=== PATIENT | female | born 1990 | race American Indian/Alaskan Native ===

== ENCOUNTER 2017-12-29 06:57 | Emergency (ER) | payer SELFPAY ==
[2017-12-29] MEDS ORDERED: TYLENOL ONE (07:34)
[2017-12-29] MEDS ORDERED: TYLENOL PO ONE (07:35)
[2017-12-29 09:31] VITALS: BP 116/70
--- NOTE | 2017-12-29 09:40 | Emergency Department Report ---
HPI - General Chief Complaint: Fever Time Seen by Provider: 12/29/17 09:21 - HPI HPI: 27-year-old female presents to the emergency department with complaint of a three-day history of a fever, sore throat and some right ear pain. She also has some body aches. She tried some Tylenol for her symptoms without much relief. She denies any other past medical history other than some asthma. No recent travel or sick contacts at home. She denies any rash, chest pain, shortness of breath, abdominal pain, vaginal bleeding or discharge, dysuria. She does not have a primary care physician as she recently moved to the area. ED Past Medical Hx - Past Medical History Previous Medical History?: Yes Hx Asthma: Yes - Surgical History Past Surgical History?: Yes Additional Surgical History: x 1 - Social History Smoking Status: Never Smoker Substance Use Type: Alcohol - Medications Home Medications: Home Medications Medication Instructions Recorded Confirmed Last Taken Type Amoxicillin 500 mg PO TID #30 capsule 12/29/17 Unknown Rx ED Review of Systems ROS: Stated complaint: FEVER,SORETHROAT,RIGHT EAR PAIN Other details as noted in HPI Constitutional: chills, fever Eyes: denies: eye pain, eye discharge, vision change ENT: ear pain, throat pain Respiratory: denies: cough, shortness of breath, wheezing Cardiovascular: denies: chest pain, palpitations Gastrointestinal: denies: abdominal pain, nausea, diarrhea Genitourinary: denies: urgency, dysuria, discharge Musculoskeletal: denies: back pain, joint swelling, arthralgia Skin: denies: rash, lesions Neurological: denies: headache, weakness, paresthesias Physical Exam - Physical Exam Vital Signs: Vital Signs 12/29/17 12/29/17 07:31 09:30 Temperature 101.3 F H 99.6 F Pulse Rate 103 H 96 H Respiratory 20 18 Rate Blood Pressure 128/86 Blood Pressure 116/70 [Left] O2 Sat by Pulse 99 100 Oximetry Physical Exam: GENERAL: The patient is well-developed well-nourished. HENT: Normocephalic. Atraumatic. Patient has moist mucous membranes. The patient has bilateral tonsillar hypertrophy, erythema and bilateral tonsillar exudates. No drooling or trismus. Normal-appearing external ear canals and tympanic membranes bilaterally. EYES: Extraocular motions are intact. Pupils equal reactive to light bilaterally. NECK: Supple. There is a left mobile but tender submandibular lymph node. CHEST/LUNGS: Clear to auscultation. There is no respiratory distress noted. HEART/CARDIOVASCULAR: Regular. There is no tachycardia. There is no murmur. ABDOMEN: Abdomen is soft, nontender. Patient has normal bowel sounds. There is no abdominal distention. SKIN: Skin is warm and dry. NEURO: The patient is awake, alert, and oriented. The patient is cooperative. The patient has no focal neurologic deficits. The patient has normal speech. MUSCULOSKELETAL: There is no tenderness or deformity. There is no limitation range of motion. There is no evidence of acute injury. ED Course Vital Signs 12/29/17 12/29/17 07:31 09:30 Temperature 101.3 F H 99.6 F Pulse Rate 103 H 96 H Respiratory 20 18 Rate Blood Pressure 128/86 Blood Pressure 116/70 [Left] O2 Sat by Pulse 99 100 Oximetry ED Medical Decision Making - Medical Decision Making Patient presents with a sore throat, fever and ear discomfort. On physical examination she has an appearance of strep pharyngitis with tonsillar hypertrophy, erythema and exudates. She was given some Tylenol for her fever which did improve if not resolved the fever prior to discharge. She was placed on antibiotics and encouraged to follow up with her primary care physician. We discussed using Tylenol and ibuprofen intermittently for the fever and/or discomfort. She will return to ER with any worsening of her symptoms or any acute distress. - Differential Diagnosis strep pharyngitis, mononucleosis, upper respiratory infection, otitis media Critical Care Time: No Critical care attestation.: If time is entered above; I have spent that time in minutes in the direct care of this critically ill patient, excluding procedure time. ED Disposition Clinical Impression: Strep pharyngitis, Fever Disposition: [id number] TO HOME OR SELFCARE Is pt being admited?: No Condition: Stable Instructions: Strep Throat (ED), Fever in Adults (ED) Additional Instructions: Please follow up with a primary care physician in the next few days. He can take Tylenol every 4 hours and ibuprofen every 6 hours, using weight-based dosing, as needed for fever or discomfort. Return to the emergency Department with any worsening of your symptoms including any intractable fever, drooling, shortness of breath, or any acute distress. Prescriptions: Amoxicillin 500 mg PO TID #30 capsule Referrals: PRIMARY CARE, [Primary Care Provider] - 3-5 Days MIRIAN PARSONS MD [Staff Physician] - 3-5 Days [facility] [Outside] - 3-5 Days Forms: Work/School Release Form(ED) Time of Disposition: 09:40
== END 2017-12-29 09:58 | disposition home or self-care (01) ==
LOC: ED 06:57
DX: J02.0 Streptococcal pharyngitis (principal); J45.909 Unspecified asthma, uncomplicated
CPT/HCPCS: 99282